=== PATIENT | female | born 1990 | race Two or more races ===

== ENCOUNTER 2021-01-11 03:53 | Inpatient (IN) | payer BC, OTHER ==
[~2021-01-11] VITALS: Ht 157.5 cm; Wt 80.7 kg
[2021-01-11 04:33] LABS: Basophils # (auto) 0.1 10 ^3/uL (0-0.2); Basophils % (auto) 0.7 % (0.0-2.0); Eosinophils # (auto) 0.1 10 ^3/uL (0-0.8); Hematocrit 41.3 % (36.0-46.0); Lymphocytes # (auto) 1.9 10 ^3/uL (0.4-5.4); Mean Corpuscular Hemoglobin 30.2 pg (28.0-32.0); Mean Corpuscular Hgb Conc. 33.8 g/dL (32.0-36.0); Mean Corpuscular Volume 89.4 fL (80.0-100.0); Monocytes # (auto) 0.3 10 ^3/uL (0-1.3); Monocytes % (auto) 4.5 % (0.0-12.0); Neutrophils # (auto) 4.8 10 ^3/uL (1.6-8.6); Neutrophils % (auto) 66.8 % (37.0-80.0); Nucleated Red Blood Cells % 0.1 %; Red Blood Cells 4.62 10^6/uL (4.0-5.20); Red Cell Distribution Width 14.4 % (11.8-14.3); White Blood Cell 7.3 10^3/uL (4.4-10.8)
[2021-01-11 04:42] LABS: Albumin 3.8 g/dL (3.4-5.0); BUN/Creatinine Ratio 13.2; Calcium 8.7 mg/dL (8.5-10.1); Magnesium 2.2 mg/dL (1.6-2.6); Potassium 3.8 mmol/L (3.5-5.1)
[2021-01-11 04:46] LABS: Bilirubin, Total 0.2 mg/dL (0.2-1.0); Total Protein 8.2 g/dL (6.4-8.2)
[2021-01-11] MEDS ORDERED: ONDANSETRON HCL 4 MG/2 ML VIAL IV ONE (07:00)
[2021-01-11] MEDS ORDERED: MORPHINE SULFATE 4 MG/ML SYR/VIAL IV ONE (07:00)
[2021-01-11] MEDS ORDERED: SODIUM CHLORIDE 0.9% 500 ML IVB ONE (07:00)
[2021-01-11 09:10] LABS: Urine Bacteria NONE SEEN /hpf (None Seen); Urine Blood Negative /uL (Negative); Urine Mucus FEW (None Seen); Urine Specific Gravity 1.021 (1.001-1.035); Urine WBC 1 /hpf (0 - 5)
[2021-01-11] MEDS ORDERED: PROMETHAZINE HCL 25 MG/ML 1ML IV PRN (14:00)
[2021-01-11] MEDS ORDERED: cefTRIAXone 1GM/50ML D5W 50 ML IV ONE (14:00)
[2021-01-11] MEDS: SODIUM CHLORIDE 0.9% 1,000 ML IV SCH (15:00)
[2021-01-11] MEDS: metroNIDAZOLE 500MG/100ML 100 ML IV SCH ×2 (15:00→21:55)
[2021-01-11 18:05] VITALS: BP 150/90
[2021-01-11] MEDS ORDERED: MELA3TAB27 PO (18:28)
[2021-01-11 19:04] LABS: Hematocrit 38.4 % (36.0-46.0)
[2021-01-11 20:00] VITALS: BP 133/86
[2021-01-11] MEDS: MORPHINE SULFATE INJECTION 2 MG/ML SYRG IV PRN (21:56)
[2021-01-11 22:00] VITALS: BP 133/86
[2021-01-12 00:32] LABS: Hemoglobin 12.6 g/dL (12.2-16.2)
[2021-01-12] MEDS: SODIUM CHLORIDE 0.9% 1,000 ML IV SCH ×2 (02:03→05:19)
[2021-01-12 04:53] VITALS: BP 103/65
[2021-01-12] MEDS: metroNIDAZOLE 500MG/100ML 100 ML IV SCH ×3 (05:18→21:01)
[2021-01-12 05:25] LABS: Basophils # (auto) 0 10 ^3/uL (0-0.2); Basophils % (auto) 0.8 % (0.0-2.0); Eosinophils # (auto) 0.2 10 ^3/uL (0-0.8); Eosinophils % (auto) 3.1 % (0.0-7.0); Hematocrit 36.5 % (36.0-46.0); Hemoglobin 12.5 g/dL (12.2-16.2); Lymphocytes # (auto) 2.6 10 ^3/uL (0.4-5.4); Lymphocytes % (auto) 42.6 % (10.0-50.0); Mean Corpuscular Hemoglobin 30.9 pg (28.0-32.0); Mean Corpuscular Hgb Conc. 34.4 g/dL (32.0-36.0); Mean Corpuscular Volume 89.8 fL (80.0-100.0); Monocytes # (auto) 0.4 10 ^3/uL (0-1.3); Monocytes % (auto) 7.1 % (0.0-12.0); Neutrophils # (auto) 2.8 10 ^3/uL (1.6-8.6); Neutrophils % (auto) 46.4 % (37.0-80.0); Nucleated Red Blood Cells % 0.1 %; Red Blood Cells 4.06 10^6/uL (4.0-5.20); White Blood Cell 6.1 10^3/uL (4.4-10.8)
[2021-01-12 05:52] LABS: Potassium 3.6 mmol/L (3.5-5.1)
[2021-01-12 05:57] LABS: BUN/Creatinine Ratio 10.9; Bilirubin, Total 0.5 mg/dL (0.2-1.0); Calcium 7.7 mg/dL (8.5-10.1); Total Protein 6.7 g/dL (6.4-8.2)
[2021-01-12 08:00] VITALS: BP 99/50
[2021-01-12] MEDS: cefTRIAXone 1GM/50ML D5W 50 ML IV SCH (11:23)
[2021-01-12] MEDS: FAMOTIDINE (10MG/ML) 2ML VL IV SCH (11:23)
[2021-01-12] MEDS: ENOXAPARIN SOD 40 MG/0.4 ML SYRINGE SC SCH (11:24)
[2021-01-12 12:00] VITALS: BP 122/71
[2021-01-12 12:12] LABS: INR 1.03 (0.9-1.15); Partial Thromboplastin Time 26.8 sec (23.6-33.0)
[2021-01-12] MEDS ORDERED: POTASSIUM CHL 20 Meq TABLET PO ONE (12:30)
[2021-01-12] MEDS: SOD CHL 0.9%/ KCL 20MEQ 1,000 ML IV SCH ×2 (12:52→22:32)
[2021-01-12 16:00] VITALS: BP 127/79
[2021-01-12] MEDS: MORPHINE SULFATE INJECTION 2 MG/ML SYRG IV PRN (21:08)
[2021-01-12 22:00] VITALS: BP 122/76
[2021-01-13] MEDS: MORPHINE SULFATE INJECTION 2 MG/ML SYRG IV PRN ×3 (04:00→19:50)
[2021-01-13 05:00] VITALS: BP 105/62
[2021-01-13] MEDS: metroNIDAZOLE 500MG/100ML 100 ML IV SCH ×4 (05:41→21:59)
[2021-01-13] MEDS ORDERED: ceFAZolin 1GM/50ML 100 ML IV ONE (07:11)
[2021-01-13] MEDS ORDERED: BUPIVACAINE 0.25% INJ 50ML VIAL ONE (07:33)
[2021-01-13] MEDS ORDERED: LIDOCAINE 1%-Mpf/Epinephrine 1:200,000 ONE (07:33)
[2021-01-13] MEDS ORDERED: fentaNYL CITRATE 100 MCG/2 ML VL ONE (07:46)
[2021-01-13] MEDS ORDERED: MEPERIDINE HCL (50 MG/ML) 1 ML VIAL ONE (07:47)
[2021-01-13] MEDS ORDERED: MIDAZOLAM HCL 2MG/2ML 2ml VIAL (1mg/ml) ONE (07:47)
[2021-01-13] MEDS ORDERED: DexAMETHasone SOD PHOS 10MG/1ML VIAL INJ ONE (07:57)
[2021-01-13] MEDS ORDERED: PROPOFOL 10 MG/ML 20 ML IV ONE (07:57)
[2021-01-13] MEDS ORDERED: ROCURONIUM 10MG/ML 10ML VIAL IV ONE (07:57)
[2021-01-13] MEDS ORDERED: LIDOCAINE W/ EPINEPHRINE 1% 20ML VIAL ONE (08:19)
[2021-01-13] MEDS ORDERED: hydrALAZINE HCL 20 MG/ML VL IV PRN (09:45)
[2021-01-13] MEDS ORDERED: MIDAZOLAM HCL 2MG/2ML 2ml VIAL (1mg/ml) IV PRN (09:45)
[2021-01-13] MEDS ORDERED: ePHEDrine SULFATE 50 MG/ML AMP IV PRN (09:45)
[2021-01-13] MEDS ORDERED: HYDROmorphone HCL 2 MG/ML VL IV PRN (09:45)
[2021-01-13] MEDS ORDERED: LABETALOL HCL 5 MG/ML 4ML SYRINGE IV PRN (09:45)
[2021-01-13] MEDS ORDERED: MORPHINE SULFATE 4 MG/ML SYR/VIAL IV PRN (09:45)
[2021-01-13] MEDS ORDERED: ONDANSETRON HCL 4 MG/2 ML VIAL IV PRN (09:45)
[2021-01-13] MEDS: SOD CHL 0.9%/ KCL 20MEQ 1,000 ML IV SCH (09:45)
[2021-01-13] MEDS: cefTRIAXone 1GM/50ML D5W 50 ML IV SCH (10:20)
[2021-01-13] MEDS: FAMOTIDINE (10MG/ML) 2ML VL IV SCH (10:20)
[2021-01-13] MEDS: ENOXAPARIN SOD 40 MG/0.4 ML SYRINGE SC SCH (10:22)
[2021-01-13 13:00] VITALS: BP 106/60
[2021-01-13 17:00] VITALS: BP 105/65
[2021-01-13 18:00] VITALS: BP 120/70
[2021-01-14 05:00] VITALS: BP 103/58
[2021-01-14] MEDS: metroNIDAZOLE 500MG/100ML 100 ML IV SCH ×2 (05:28→14:47)
[2021-01-14] MEDS: MORPHINE SULFATE INJECTION 2 MG/ML SYRG IV PRN ×2 (05:28→10:19)
[2021-01-14 09:00] VITALS: BP 102/58
[2021-01-14] MEDS: FAMOTIDINE (10MG/ML) 2ML VL IV SCH (10:05)
[2021-01-14] MEDS: ENOXAPARIN SOD 40 MG/0.4 ML SYRINGE SC SCH (10:05)
[2021-01-14] MEDS: cefTRIAXone 1GM/50ML D5W 50 ML IV SCH (10:05)
[2021-01-14] MEDS ORDERED: FAMO20TA10 PO (10:10)
[2021-01-14] MEDS ORDERED: IBUP400T22 PO (10:10)
[2021-01-14 13:00] VITALS: BP 107/69
[2021-01-14 13:52] VITALS: BP 102/58
== END 2021-01-14 14:40 | disposition home or self-care (01) | DRG 418 ==
LOC: ER 03:53 → OVERFLOW 13:50 → WEST WING 18:30
PROVIDERS: ADMIT Internal Medicine; ATTEND Internal Medicine
PROC: 0FT44ZZ Resection of Gallbladder, Percutaneous Endoscopic Approach (ICD-10-PCS; principal; 2021-01-13 07:48)
DX: K80.00 Calculus of gallbladder with acute cholecystitis without obstruction (principal); K92.2 Gastrointestinal hemorrhage, unspecified; Z20.822 Contact with and (suspected) exposure to COVID-19; K42.9 Umbilical hernia without obstruction or gangrene; E05.00 Thyrotoxicosis with diffuse goiter without thyrotoxic crisis or storm; E66.9 Obesity, unspecified; Z68.32 Body mass index [BMI] 32.0-32.9, adult; Z82.49 Family history of ischemic heart disease and other diseases of the circulatory system; Z83.3 Family history of diabetes mellitus
CPT/HCPCS: 36415; 71045; 74176; 76705; 78226; 80053; 81001; 81025; 82150; 82247; 83690; 83735; 84443; 85014; 85018; 85025; 85045; 85610; 85730; 86850; 86900; 86901; 87426; 96361; 96365; 96368; 96375; G0378; J0690; J0696; J1100; J2250; J2405; J2704; J3490